=== PATIENT | female | born 1995 | race Hispanic/Latino ===

== ENCOUNTER 2019-12-10 01:52 | Emergency (ER) | payer SELFPAY ==
[2019-12-10 02:35] LABS: Urine Specific Gravity 1.025 (1.005-1.030)
[2019-12-10 02:36] LABS: Urine Specific Gravity 1.025 (1.005-1.030)
[2019-12-10 02:38] LABS: Urine Blood NEGATIVE (NEG); Urine Glucose NEGATIVE (NEG); Urine Protein NEGATIVE (NEG)
[2019-12-10] MEDS ORDERED: KETOROLAC 30 MG/ML INJ ONE (03:27)
[2019-12-10 03:29] LABS: Basophils % 0.4 % (0-1.3); Hematocrit 38.8 % (36.0-45.0); Lymphocytes % 18.7 % (15.3-44.8); MPV 10.8 fL (7.6-11.3); RBC Red Blood Cell Count 4.49 M/uL (3.86-4.86)
[2019-12-10 03:40] LABS: ALT/SGPT 32 U/L (12-78); AST/SGOT 23 U/L (15-37); Albumin 4.1 g/dL (3.4-5.0); Alkaline Phosphatase 137 U/L (45-117); BUN Blood Urea Nitrogen 13 mg/dL (7-18); Bicarbonate 28 mmol/L (21-32); Bilirubin Direct < 0.1 mg/dL (0-0.2); Bilirubin Total 0.2 mg/dL (0.2-1.0); Glucose Level 112 mg/dL (74-106); Lipase 118 U/L (73-393); Sodium Level 138 mmol/L (136-145)
[2019-12-10] MEDS ORDERED: AZITHROMYCIN 250 MG TAB ONE (04:21)
[2019-12-10] MEDS ORDERED: CEFTRIAXONE/SWI 1gm 1 GM/10 ML SYR ONE (04:21)
--- NOTE | 2019-12-10 05:18 | EDPHYS ---
Physician Documentation [facility] Name: Jesenia Juan Age: 24 yrs Sex: Female : 1995 Arrival Date: 12/10/2019 Time: 01:56 Bed 19 Private MD: ED Physician Haris Gardner HPI: 12/09 03:15 This 24 yrs old Female presents to ER via Wheelchair with complaints of cp Abdominal Pain, Vomiting. 03:15 The patient presents with abdominal pain in the lower abdomen. 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 The symptoms do not radiate. Associated signs and symptoms: Pertinent positives: nausea, Pertinent negatives: diarrhea, dysuria, fever. Severity of pain: in the emergency department the pain is unchanged despite home interventions. Pain started after having intercourse. 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 - Social history:: Smoking status: Patient reports the use of cigarette tobacco products, denies chronic smoking, but will smoke occasionally. ROS: 03:17 Eyes: Negative for injury, pain, redness, and discharge. cp 03:17 Constitutional: Negative for body aches, chills, fever, poor PO intake. 03:17 ENT: Negative for drainage from ear(s), ear pain, sore throat, difficulty swallowing, difficulty handling secretions. 03:17 Cardiovascular: Negative for chest pain, palpitations. 03:17 Respiratory: Negative for cough, shortness of breath, wheezing. 03:17 Abdomen/GI: Positive for abdominal pain, nausea, Negative for vomiting, diarrhea, constipation, black/tarry stool, rectal bleeding. 03:17 Back: Negative for radiated pain. 03:17 : Positive for vaginal discharge, Negative for urinary symptoms, vaginal bleeding. 03:17 Neuro: Negative for altered mental status, headache, weakness. 03:17 All other systems are negative. Exam: 03:18 Head/Face: Normocephalic, atraumatic. cp 03:18 Constitutional: The patient appears in no acute distress, alert, awake, non-toxic, well developed, well nourished, uncomfortable. 03:18 Eyes: Periorbital structures: appear normal, Conjunctiva: normal, no exudate, no injection, Sclera: no appreciated abnormality, Lids and lashes: appear normal, bilaterally. 03:18 ENT: External ear(s): are unremarkable, Nose: is normal, Mouth: Lips: moist, Oral mucosa: pink and intact, moist, Posterior pharynx: is normal, airway is patent, no erythema, no exudate. 03:18 Chest/axilla: Inspection: normal, Palpation: is normal, no crepitus, no tenderness. 03:18 Cardiovascular: Rate: normal, Rhythm: regular, Heart sounds: murmur, not appreciated. 03:18 Respiratory: the patient does not display signs of respiratory distress, Respirations: normal, no use of accessory muscles, no retractions, labored breathing, is not present, Breath sounds: are clear throughout, no decreased breath sounds, no wheezing. 03:18 Abdomen/GI: Inspection: abdomen appears normal, Bowel sounds: active, all quadrants, Palpation: soft, in all quadrants, moderate abdominal tenderness, in the right lower quadrant and left lower quadrant, rebound tenderness, is not appreciated, voluntary guarding, is elicited in the left lower quadrant. 03:18 Back: pain, is absent, ROM is normal. 03:18 : Pelvic Exam: External exam: is normal, Speculum exam: no bleeding is noted, os that is closed, bimanual exam reveals cervical motion tenderness, uterine tenderness, right adnexal tenderness, left adnexal tenderness, no adnexal mass on right, no adnexal mass on left, discharge, white, the nurse was present for the exam, Sexual behavior: the patient is sexually active, and reports a single partner, method of control is none. 03:18 Skin: no rash present. Vital Signs: 02:23 BP 115 / 86; Pulse 86; Resp 18; Temp 98.4; Pulse Ox 99% ; Weight 54.43 kg; Height 5 ft. wh 4 in. (162.56 cm); Pain 8/10; 04:00 BP 107 / 59; Pulse 93; Resp 18; Pulse Ox 100% on R/A; wh 05:30 BP 99 / 69; Pulse 85; Resp 18; Pulse Ox 100% on R/A; wh 02:23 Body Mass Index 20.60 (54.43 kg, 162.56 cm) MDM: 02:08 Patient medically screened. [facility] 03:20 Differential diagnosis: appendicitis, cholecystitis, Cholelithiasis, Ectopic , cp Ovarian Torsion, Pelvic Inflammatory Disease, Pyelonephritis, Tubal Ovarian Abcess, Ureterolithiasis, urinary tract infection. 03:35 Data reviewed: vital signs, nurses notes, lab test result(s), radiologic studies, CT brenna scan. 12/09 02:22 Order name: Urine Dipstick--Ancillary (enter results) [facility] 12/09 02:24 Order name: Urine --Ancillary (enter results) [facility] 12/09 02:35 Order name: Basic Metabolic Panel 12/09 02:35 Order name: CBC with Diff 12/09 02:35 Order name: Creatinine for Radiology 12/09 02:35 Order name: Hepatic Function 12/09 02:35 Order name: Lipase 12/09 02:36 Order name: Urine --Ancillary; Complete Time: 03:34 EDPR 12/09 02:37 Order name: Urine Dipstick-Ancillary; Complete Time: 03:34 EDMS 12/09 02:44 Order name: GC (GONORR/CHLAMYDIA) Probe 12/09 02:44 Order name: Wet Prep 12/09 03:31 Order name: CBC with Automated Diff; Complete Time: 03:34 EDMS 12/09 03:38 Order name: Creatinine (Radiology Only); Complete Time: 04:22 EDPR 12/09 03:41 Order name: Basic Metabolic Panel; Complete Time: 04:22 EDPR 12/09 02:15 Order name: Urine Dipstick-Ancillary (obtain specimen); Complete Time: 02:22 aa1 12/09 02:15 Order name: Urine Test (obtain specimen); Complete Time: 02:23 aa1 12/09 02:35 Order name: IV Saline Lock; Complete Time: 02:50 cp 12/09 02:35 Order name: Labs collected and sent; Complete Time: 02:51 12/09 02:35 Order name: CT Abd/Pelvis - IV Contrast Only 12/09 02:44 Order name: Pelvic Exam Setup; Complete Time: 02:50 cp 12/09 03:41 Order name: Liver (Hepatic) Function; Complete Time: 04:22 EDPR 12/09 03:41 Order name: Lipase; Complete Time: : EDPR 12/09 03:49 Order name: Wet Prep; Complete Time: EDMS Administered Medications: 03:38 Drug: TORadol - Ketorolac 15 mg Route: IVP; Site: left antecubital; 05:47 Follow up: Response: No adverse reaction; Pain is decreased 04:17 Drug: Rocephin 1 grams Route: IV; Rate: per protocol; Site: left antecubital; 05:47 Follow up: Response: No adverse reaction; IV Status: Completed infusion 04:17 Drug: Zithromax 1 grams Route: PO; 05:47 Follow up: Response: No adverse reaction Disposition: 03:35 Co-signature as Attending Physician, Haris Gardner MD I agree with the assessment and brenna plan of care. Disposition: 12/10/19 05:16 Discharged to Home. Impression: Abdominal tenderness, Abdominal and pelvic pain, Trichomoniasis, Vomiting. - Condition is Stable. - Discharge Instructions: Abdominal Pain, Adult, Pelvic Pain, Female, Pelvic Pain, Female, [id number], Abdominal Pain, Adult, Gveg-oh-Xbie, Pelvic Rest. - Prescriptions for Flagyl 500 mg Oral Tablet - take 4 tablet by ORAL route one time for 1 day; 4 tablet. Ibuprofen 600 mg Oral Tablet - take 1 tablet by ORAL route every 6 hours As needed take with food; 20 tablet. Tylenol- Codeine #3 300-30 mg Oral Tablet - take 2 tablets by ORAL route every 6 hours As needed; 20 tablet. Zofran 4 mg Oral Tablet - take 1 tablet by ORAL route every 12 hours As needed; 14 tablet. Doxycycline Hyclate 100 mg Oral Tablet - take 1 tablet by ORAL route every 12 hours; 20 tablet. - Medication Reconciliation Form, Thank You Letter, Antibiotic Education, Prescription Opioid Use form. - Follow up: Private Physician; When: 2 - 3 days; Reason: Recheck today's complaints, Continuance of care, Re-evaluation by your physician. Follow up: Sajan Mahoney; When: 2 - 3 days; Reason: Recheck today's complaints, Re-evaluation by your physician. - Problem is new. - Symptoms have improved. Signatures: Dispatcher [employer] Melodie Quiroga RN RN aa1 Haris Gardner MD MD cha Page, Corey, PA PA Macarena Morales Corrections: (The following items were deleted from the chart) 05:54 05:16 12/10/2019 05:16 Discharged to Home. Impression: Abdominal tenderness; Abdominal wh and pelvic pain; Trichomoniasis; Vomiting. Condition is Stable. Discharge Instructions: Abdominal Pain, Adult, Pelvic Pain, Female, Pelvic Pain, Female, Bukg-pz-Splr, Abdominal Pain, Adult, Ffun-zz-Altu, Pelvic Rest. Prescriptions for Flagyl 500 mg Oral Tablet - take 4 tablet by ORAL route one time for 1 day; 4 tablet, Ibuprofen 600 mg Oral Tablet - take 1 tablet by ORAL route every 6 hours As needed take with food; 20 tablet, Tylenol-Codeine #3 300-30 mg Oral Tablet - take 2 tablets by ORAL route every 6 hours As needed; 20 tablet, Zofran 4 mg Oral Tablet - take 1 tablet by ORAL route every 12 hours As needed; 14 tablet, Doxycycline Hyclate 100 mg Oral Tablet - take 1 tablet by ORAL route every 12 hours; 20 tablet. and Forms are Medication Reconciliation Form, Thank You Letter, Antibiotic Education, Prescription Opioid Use. Follow up: Private Physician; When: 2 - 3 days; Reason: Recheck today's complaints, Continuance of care, Re-evaluation by your physician. Follow up: Sajan Mahoney; When: 2 - 3 days; Reason: Recheck today's complaints, Re-evaluation by your physician. Problem is new. Symptoms have improved. brenna
--- NOTE | 2019-12-10 05:18 | ER ---
Nurse's Notes [facility] Name: Jesenia Juan Age: 24 yrs Sex: Female : 1995 Arrival Date: 12/10/2019 Time: 01:56 Bed 19 Private MD: Diagnosis: Abdominal tenderness;Abdominal and pelvic pain;Trichomoniasis;Vomiting Presentation: 12/09 02:23 Chief complaint: Spouse and/or significant other states: abdominal pain that started an hour ago after they were finish having intercourse. Associated symptoms of nausea and vomiting. Coronavirus screen: The patient has NOT traveled to a country currently being monitored by the [facility] within the last 14 days. Ebola Screen: Patient negative for fever greater than or equal to 101.5 degrees Fahrenheit, and additional compatible Ebola Virus Disease symptoms Patient denies exposure to infectious person. Initial Sepsis Screen: Does the patient meet any 2 criteria? No. Patient's initial sepsis screen is negative. Does the patient have a suspected source of infection? Yes: Acute abdominal pain. Risk Assessment: Do you want to hurt yourself or someone else? Patient reports no desire to harm self or others. 02:23 Method Of Arrival: Wheelchair 02:23 Acuity: [place] 3 02:26 Onset of symptoms was December 10, 2019. 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 - Social history:: Smoking status: Patient reports the use of cigarette tobacco products, denies chronic smoking, but will smoke occasionally. Screenin:26 Abuse screen: Denies threats or abuse. Denies injuries from another. Nutritional screening: No deficits noted. Tuberculosis screening: No symptoms or risk factors identified. Fall Risk None identified. Assessment: 02:30 General: Appears in no apparent distress. Behavior is calm, cooperative, appropriate for age. Pain: Complains of pain in left lower quadrant and right lower quadrant Pain does not radiate. Pain currently is 7 out of 10 on a pain scale. Quality of pain is described as aching, Pain began 1 hour ago. Neuro: Level of Consciousness is awake, alert, obeys commands, Oriented to person, place, time, situation, Appropriate for age. Cardiovascular: Heart tones S1 S2. Respiratory: Airway is patent Respiratory effort is even, unlabored, Respiratory pattern is regular, symmetrical, Breath sounds are clear bilaterally. GI: Abdomen is flat, non-distended, Bowel sounds present X 4 quads. Abd is soft and non tender X 4 quads. Reports lower abdominal pain. : No signs and/or symptoms were reported regarding the genitourinary system. EENT: No signs and/or symptoms were reported regarding the EENT system. Derm: Skin is intact, is healthy with good turgor, Skin is pink, warm \T\ dry. normal. Musculoskeletal: Circulation, motion, and sensation intact. 04:00 Reassessment: Patient appears in no apparent distress at this time. No changes from previously documented assessment. Patient and/or family updated on plan of care and expected duration. Pain level reassessed. Patient is alert, oriented x 3, equal unlabored respirations, skin warm/dry/pink. 05:30 Reassessment: Patient appears in no apparent distress at this time. No changes from previously documented assessment. Patient and/or family updated on plan of care and expected duration. Pain level reassessed. Patient is alert, oriented x 3, equal unlabored respirations, skin warm/dry/pink. Patient states feeling better. Vital Signs: 02:23 BP 115 / 86; Pulse 86; Resp 18; Temp 98.4; Pulse Ox 99% ; Weight 54.43 kg; Height 5 ft. 4 in. (162.56 cm); Pain 8/10; 04:00 BP 107 / 59; Pulse 93; Resp 18; Pulse Ox 100% on R/A; 05:30 BP 99 / 69; Pulse 85; Resp 18; Pulse Ox 100% on R/A; 02:23 Body Mass Index 20.60 (54.43 kg, 162.56 cm) ED Course: 01:56 Patient arrived in ED. [id number] 02:01 Macarena Aiken is Primary Nurse. 02:06 Haris Magallanes PA is PHCP. cp 02:06 Haris Gardner MD is Attending Physician. cp 02:25 Triage completed. 02:26 Patient has correct armband on for positive identification. Placed in gown. Bed in low wh position. Call light in reach. Side rails up X 1. Pulse ox on. NIBP on. 02:30 Arm band placed on right wrist. 02:45 Inserted saline lock: 22 gauge in left antecubital area, using aseptic technique. Blood wh collected. 03:00 Assist provider with pelvic exam: Set up pelvic tray. Performed by Haris FINN Specimens sent to lab. Patient tolerated well. Melodie Burrell RN as family law legal assistant. 05:15 Sajan Mahoney MD is Referral Physician. [facility] 05:48 IV discontinued, intact, bleeding controlled, No redness/swelling at site. 05:52 CT Abd/Pelvis - IV Contrast Only In Process Unspecified. EDMS Administered Medications: 03:38 Drug: TORadol - Ketorolac 15 mg Route: IVP; Site: left antecubital; 05:47 Follow up: Response: No adverse reaction; Pain is decreased 04:17 Drug: Rocephin 1 grams Route: IV; Rate: per protocol; Site: left antecubital; 05:47 Follow up: Response: No adverse reaction; IV Status: Completed infusion 04:17 Drug: Zithromax 1 grams Route: PO; 05:47 Follow up: Response: No adverse reaction Outcome: 05:16 Discharge ordered by . [facility] 05:48 Discharged to home ambulatory, with family. 05:48 Condition: stable 05:48 Discharge instructions given to patient, family, Instructed on discharge instructions, follow up and referral plans. no drinking with medication, no driving heavy equipment, medication usage, POC Demonstrated understanding of instructions, follow-up care, medications, POC Prescriptions given X 4. 05:54 Patient left the ED. Signatures: Dispatcher [employer] EDMS Haris Gardner MD MD cha Page, Corey, PA PA cp [place], [facility] Leslie Vargas jg7 Corrections: (The following items were deleted from the chart) 05:54 05:48 No provider procedures requiring assistance completed. [facility]
[2019-12-10 06:08] VITALS: TEMP 98.4
[2019-12-10 06:09] VITALS: O2SAT 100
[2019-12-10 06:11] VITALS: BP 99/69
--- NOTE | 2019-12-10 10:53 | RAD REPORT ---
EXAM DESCRIPTION: CT - Abdomen Pelvis W Contrast - 12/10/2019 6:31 am CLINICAL HISTORY: The patient is 24 years old and is Female; lower abdomen pain TECHNIQUE: Axial computed tomography images of the abdomen and pelvis with intravenous contrast. S agittal and coronal reformatted images were created and reviewed. This CT exam was performed using one or more of the following dose reduction techniques: automated exposure control, adjustment of t he mA and/or kV according to patient size, and/or use of iterative reconstruction technique. COMPARISON: No relevant prior studies available. FINDINGS: LUNG BASES: Unremarkable. No mass. No consolidation. ABDOMEN: LIVER: Unremarkable. No mass. GALLBLADDER AND BILE DUCTS: No calcified stones. No ductal dilation. PANCREAS: No ductal dilation. No mass. SPLEEN: Unremarkable. ADRENALS: Unremarkable. No mass. KIDNEYS AND URETERS: Unremarkable. The kidneys enhance symmetrically. No obstructing renal or ur eteral calculus is seen. No hydronephrosis or hydroureter. No perinephric fluid or stranding. STOMACH AND BOWEL: The stomach is filled with fluid and air. The small bowel is relatively jordi l in caliber. A moderate amount stool is present throughout colon. There is no mucosal thickening or evidence of bowel obstruction. PELVIS: APPENDIX: The appendix is normal in caliber without surrounding inflammation. BLADDER: Unremarkable. No mass. REPRODUCTIVE: A 1.5 cm left ovarian cyst is present. No follow-up imaging is recommended. The ut erus and right ovary are normal. Multiple prominent uterine vessels are noted within the pelvis. ABDOMEN and PELVIS: INTRAPERITONEAL SPACE: Free fluid is present within the pelvis which is likely physiologic. No free air. BONES/JOINTS: No acute fracture. SOFT TISSUES: The soft tissues are normal. VASCULATURE: The vascular structures are otherwise normal in course and caliber. LYMPH NODES: Unremarkable. No enlarged lymph nodes. IMPRESSION: 1. 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 2. Moderate stool burden without obstruction. Electronically signed by: Tonie Bush MD 12/10/2019 5:02 AM CDT Due to temporary technical issues with the PACS/Fluency reporting system, reports are being signed by the in house radiologist as a courtesy to ensure prompt reporting. The interpreting radiologist is f ully responsible for the content of the report.
[2019-12-13 20:35] LABS: C.trachomatis RNA,TMA Not Detected (Not Detected)
== END 2019-12-10 05:54 | disposition home or self-care (01) ==
LOC: ER 01:52
DX: A59.9 Trichomoniasis, unspecified (principal); R11.10 Vomiting, unspecified; R10.2 Pelvic and perineal pain; F17.210 Nicotine dependence, cigarettes, uncomplicated
CPT/HCPCS: 36415; 74177; 80048; 80076; 81003; 81025; 83690; 85025; 87210; 87490; 87590; 96365; 96375; 99284; J0696; Q9967

== ENCOUNTER 2025-07-02 17:33 | Emergency (ER) | payer SELFPAY ==
--- NOTE | 2025-07-02 18:37 | ER ---
Nurse's Notes [facility] Name: Jesenia Sharpe Age: 30 yrs Sex: Female : 1995 Arrival Date: 07/02/2025 Time: 17:33 Bed [id number] Private MD: Diagnosis: Assessment: 07/02 18:00 Reassessment: CALLED FROM TRIAGE, NO ANSWER. dd2 18:36 Reassessment: CALLED FROM TRIAGE AGAIN, NO ANSWER. dd2 ED Course: 17:35 Patient arrived in ED. mr 17:37 Gerry Alves FNP-C is PHCP. dr5 17:38 Shi Wakefield MD is Attending Physician. dr5 17:44 PHCP role handed off by Gerry Alves FNP-C cp 17:44 Haris Magallanes PA-C is PHCP. cp Administered Medications: No medications were administered Outcome: 18:36 Eloped from waiting room, before seeing physician Time discovered patient gone: June [id number] at 18:36 18:36 unknown 18:37 Patient left the ED. dd2 19:08 Patient left the ED. ha1 Signatures: Ann Yang, Reg Reg mr Haris Magallanes PA-C PA-C cp Ayala, Heidy, RN RN ha1 JONI HOOVER RN RN dd2 Geryr Alves FNP-C FNP-Cdr5
== END 2025-07-02 19:08 | disposition left against medical advice (07) ==
LOC: ER 17:33
DX: Z02.9 Encounter for administrative examinations, unspecified (principal)